=== PATIENT | male | born 1965 | race Caucasian/White ===

== ENCOUNTER 2017-02-09 12:12 | Emergency (ER) | payer MEDICARE, MEDICAID ==
[2017-02-09 12:25] VITALS: BP 120/66
[2017-02-09] MEDS ORDERED: AMOX/CLAV 875 MG/125 MG TABLET PO STA (12:57)
[2017-02-09] MEDS ORDERED: DEXAMETHASONE 10 MG/ML VIAL PO STA (12:57)
[2017-02-09] MEDS ORDERED: CHERRY SYRUP 10 ML UDC PO ONE (12:59)
[2017-02-09] MEDS ORDERED: DEXAMETHASONE 10 MG/ML VIAL ONE (12:59)
[2017-02-09] MEDS ORDERED: AMOX/CLAV 875 MG/125 MG TABLET PO ONE (12:59)
--- NOTE | 2017-02-09 13:01 | ED Physician Documentation ---
History of Present Illness - Stated complaint Stated Complaint: FACIAL SWELLING - Chief complaint Chief Complaint: Heent - Additonal information Additional information: hx from pt 51 male no major med problems except spinal stenosis and arthritis (in process of getting a cardiac work up too) has dentures dentures rubbed upper right posterior now painful and swollen subj fever Review of Systems Constitutional: reports: Fever. denies: Chills Throat: reports: Dental pain / toothache Cardiac: denies: Chest pain / pressure Respiratory: denies: Dyspnea Endocrine: denies: Easy bruising / bleeding Immunocompromised: denies: Immunocompromised PD PAST MEDICAL HISTORY - Past Medical History Past Medical History: Yes Cardiovascular: Atrial flutter Respiratory: COPD, Emphysema Neuro: Other Psych: Anxiety Musculoskeletal: Osteoarthritis - Past Surgical History Past Surgical History: Yes Ortho: Arthroscopic surgery, Spine surgery - Present Medications Home Medications: Ambulatory Orders Medication Instructions Recorded Confirmed Amox/Clav 875/125 [Augmentin] 1 each PO Q12H #20 tablet 02/09/17 Hydromorphone HCl [Dilaudid] 1 tab PO BID PRN 02/09/17 02/09/17 Naproxen Sodium [Aleve] 1 tab PO BID 02/09/17 02/09/17 - Allergies Allergies/Adverse Reactions: Allergies Allergy/AdvReac Type Severity Reaction Status Date / Time morphine Allergy Unknown Verified 02/09/17 12:25 pineapple AdvReac Unknown Verified 02/09/17 12:25 - Social History Does the pt smoke?: Yes Smoking Status: Current every day smoker Does the pt drink ETOH?: No Does the pt have substance abuse?: Yes Substance Use and Type: Marijuana - Immunizations Immunizations are current?: Yes - POLST Patient has POLST: No PD ED PE NORMAL - Vitals Vital signs reviewed: Yes - General General: Alert and oriented X 3 - HEENT HEENT: PERRL, Other (edentulous, tdner erythmea to posterior upper right gum line with extesnion to L soft plapate and buccal membranses, but no focal fluctuance to suggest abscess to drain, no trismus) - Neck Neck: Other (large anahi ant cervical adenopathy which pt states he has had since he was a child) Results - Vitals Vitals: Vital Signs - 24 hr 02/09/17 12:19 Temperature 37.0 C Heart Rate 79 Respiratory 18 Rate Blood Pressure 120/66 O2 Saturation 97 Oxygen O2 Source Room air Departure - Departure Disposition: 01 Home, Self Care Clinical Impression: Dental infection Condition: Good Prescriptions: Amox/Clav 875/125 [Augmentin] 1 each PO Q12H #20 tablet Comments: You have a fairly extensive oral infection but no abscess to drain The steroids should decrease the swelling and some of the pain - you can also take your dilaudid as prescribed Take the antibiotics twice a day - next dose tonight Please return to see me tomorrow for a recheck Return sooner if worse
== END 2017-02-09 13:22 | disposition home or self-care (01) ==
LOC: ED 12:12
DX: K04.7 Periapical abscess without sinus (principal); I48.92 Unspecified atrial flutter; F17.200 Nicotine dependence, unspecified, uncomplicated
CPT/HCPCS: 99283; A9270

== ENCOUNTER 2017-02-10 11:45 | Emergency (ER) | payer MEDICARE, MEDICAID ==
[2017-02-10 11:54] VITALS: BP 121/72
--- NOTE | 2017-02-10 13:00 | ED Physician Documentation ---
History of Present Illness - Stated complaint Stated Complaint: ABCESS L/FACE - Chief complaint Chief Complaint: Wound - Additonal information Additional information: hx from pt seen yestrday for gum and palate infection given dex and antibiotics returns as requested feeling better Review of Systems Constitutional: denies: Fever Throat: reports: Dental pain / toothache, Oral lesions / sores PD PAST MEDICAL HISTORY - Past Medical History Past Medical History: Yes Cardiovascular: Atrial flutter Respiratory: COPD, Emphysema Neuro: Other Psych: Anxiety Musculoskeletal: Osteoarthritis - Past Surgical History Past Surgical History: Yes Ortho: Arthroscopic surgery, Spine surgery - Present Medications Home Medications: Ambulatory Orders Medication Instructions Recorded Confirmed Amox/Clav 875/125 [Augmentin] 1 each PO Q12H #20 tablet 02/09/17 Hydromorphone HCl [Dilaudid] 1 tab PO BID PRN 02/09/17 02/09/17 Naproxen Sodium [Aleve] 1 tab PO BID 02/09/17 02/09/17 - Allergies Allergies/Adverse Reactions: Allergies Allergy/AdvReac Type Severity Reaction Status Date / Time morphine Allergy Unknown Verified 02/10/17 11:54 pineapple AdvReac Unknown Verified 02/10/17 11:54 - Social History Does the pt smoke?: Yes Smoking Status: Current every day smoker Does the pt drink ETOH?: No Does the pt have substance abuse?: Yes - Immunizations Immunizations are current?: Yes - POLST Patient has POLST: No PD ED PE NORMAL - Vitals Vital signs reviewed: Yes - HEENT HEENT: Other (palate and buccal membrane erythema better, now fluctance to posterior occlusive gum line, no trismus or facial swelling) Results - Vitals Vitals: Vital Signs - 24 hr 02/10/17 11:52 Temperature 36.9 C Heart Rate 76 Respiratory 14 Rate Blood Pressure 121/72 O2 Saturation 97 Oxygen O2 Source Room air Procedures - Abscess I&D (location) mouth Incision: Needle aspiration, Purulent drainage Other: Pt tolerated well, Antibiotic prescribed (yesterday) Departure - Departure Disposition: 01 Home, Self Care Clinical Impression: Dental infection Condition: Good Follow-Up: Waleska Roque I PA [Primary Care Provider] - Comments: Your should feel much better now that pus has been drained Continue the antibiotics Swish with warm water to encourage further drainage The ER staff will call you if the culture indicates a need to change antibiotics Return if worse in any way Otherwise follow up with your PMD this week for a recheck
== END 2017-02-10 13:10 | disposition home or self-care (01) ==
LOC: ED 11:45
DX: K04.7 Periapical abscess without sinus (principal); F17.200 Nicotine dependence, unspecified, uncomplicated
CPT/HCPCS: 41800; 87070; 87205; 99282